=== PATIENT | male | born 1930 | race Caucasian/White ===

== ENCOUNTER 2017-07-10 10:02 | Emergency (ER) | payer MEDICARE ==
[~2017-07-10] VITALS: Ht 167.6 cm; Wt 81.9 kg
[2017-07-10] MEDS ORDERED: AMPICILLIN/SULBACTAM 3 GM in SODIUM CHLORIDE 0.9% 100 ML IVPB ONE (11:00)
[2017-07-10] MEDS ORDERED: SODIUM CHLORIDE FLUSH 10ML SYR IVF ONE (11:00)
[2017-07-10 11:32] LABS: BASOPHILS # (AUTO) 0.02 x10^3/uL (0-0.1); BASOPHILS % (AUTO) 0 % (0-1); EOSINOPHILS # (AUTO) 0.21 x10^3/uL (0-0.4); EOSINOPHILS % (AUTO) 4 % (1-7); LYMPHOCYTES # (AUTO) 0.88 x10^3/uL (1-3.4); LYMPHOCYTES % (AUTO) 14 % (22-44); MD NO; MEAN CORPUSCULAR HEMOGLOBIN 30.6 pg (27.5-34.5); MEAN CORPUSCULAR HGB CONC 33.9 g/dL (33.2-36.2); MEAN CORPUSCULAR VOLUME 90.3 fL (81-97); MEAN PLATELET VOLUME 8.1 fL (7.4-10.4); MONOCYTES # (AUTO) 0.59 x10^3/uL (0.2-0.8); MONOCYTES % (AUTO) 10 % (2-9); NEUTROPHILS # (AUTO) 4.42 x10^3/uL (1.8-6.8); NEUTROPHILS % (AUTO) 72 % (42-75); PLATELET COUNT 210 x10^3/uL (130-400); RED BLOOD COUNT 3.83 x10^6/uL (4.38-5.82)
[2017-07-10 11:38] LABS: ALBUMIN 3.3 g/dL (3.4-5.0); ANION GAP 9 mmol/L (5-15); CALCIUM 8.9 mg/dL (8.5-10.1); CHLORIDE 104 mmol/L (98-107); CREATININE 1.35 mg/dL (0.7-1.3)
[2017-07-10 13:19] VITALS: BP 147/68
== END 2017-07-10 14:35 | disposition home or self-care (01) ==
LOC: ED 12:28
DX: L03.211 Cellulitis of face (principal); E11.9 Type 2 diabetes mellitus without complications
CPT/HCPCS: 36415; 80048; 82040; 83605; 85025; 87040; 96365; 99284; J0295

== ENCOUNTER 2017-09-16 17:14 | Emergency (ER) | payer MEDICARE ==
[~2017-09-16] VITALS: Ht 167.6 cm; Wt 90.9 kg
[2017-09-16] MEDS ORDERED: LASIX PO (19:21)
[2017-09-16] MEDS ORDERED: LISINOPRIL PO (19:21)
[2017-09-16] MEDS ORDERED: METFORMIN PO (19:21)
[2017-09-16] MEDS ORDERED: LIPITOR PO (19:21)
[2017-09-16 21:10] VITALS: BP 118/60
== END 2017-09-16 21:15 | disposition home or self-care (01) ==
LOC: ED 19:50
DX: B85.0 Pediculosis due to Pediculus humanus capitis (principal); B85.1 Pediculosis due to Pediculus humanus corporis; E11.9 Type 2 diabetes mellitus without complications; I10 Essential (primary) hypertension; E78.00 Pure hypercholesterolemia, unspecified; Z85.828 Personal history of other malignant neoplasm of skin
CPT/HCPCS: 99283

== ENCOUNTER 2018-04-18 20:36 | Emergency (ER) | payer MEDICARE ==
[~2018-04-18] VITALS: Ht 167.6 cm; Wt 73.0 kg
[~2018-04-18 20:36] MED LIST: LASIX PO; LIPITOR PO; LISINOPRIL PO; METFORMIN PO
[2018-04-18 21:03] VITALS: BP 134/85
[2018-04-18] MEDS ORDERED: ACETAMINOPHEN 325 MG TABLET PO ONE (21:30)
[2018-04-18] MEDS ORDERED: ACETAMINOPHEN 325 MG TABLET ONE (21:45)
--- NOTE | 2018-04-18 21:52 | NUR ---
ATTEMPTED TO MEDICATE PT, PT ELOPED FROM [facility], COULD NOT FIND PT AT THIS TIME.
== END 2018-04-18 22:12 | disposition home or self-care (01) ==
LOC: ED 21:06
DX: H66.011 Acute suppurative otitis media with spontaneous rupture of ear drum, right ear (principal); I10 Essential (primary) hypertension
CPT/HCPCS: 99283

== ENCOUNTER 2018-04-20 11:17 | Inpatient (IN) | payer MEDICARE ==
[~2018-04-20] VITALS: Ht 165.1 cm; Wt 86.7 kg
--- NOTE | 2018-04-20 11:34 | NUR ---
ROSHAN ESPINOZA FROM [place] FOR RON BLOOD IN STOOL. PT AOX4, PALE, VSS ON RA. NAD. PT CLEANED AND TRANSFERRED TO [facility]. MEDICATIONS WITH PT, MED REC UPDATED. FAMILY NOTIFIED PER [facility] AND ARE ON THEIR WAY
[2018-04-20] MEDS ORDERED: SODIUM CHLORIDE 0.9% 1,000ML IVBOLUS ONE (12:30)
--- NOTE | 2018-04-20 12:30 | NUR ---
PT TO CT, FAMILY AT BEDSIDE. UPDATED ON POC AND NEED FOR TEST RESULTS FOR MD TO DETERMINE COURSE OF CARE. FAMILY STATES THEY DO NOT HAVE PHONE OR WAY TO CONTACT HOSPITAL AND WILL COME BACK LATER. MED REC UPDATED
[2018-04-20 12:47] LABS: BASOPHILS # (AUTO) 0.02 x10^3/uL (0-0.1); BASOPHILS % (AUTO) 0 % (0-1); EOSINOPHILS # (AUTO) 0.09 x10^3/uL (0-0.4); EOSINOPHILS % (AUTO) 2 % (1-7); LYMPHOCYTES # (AUTO) 0.79 x10^3/uL (1-3.4); LYMPHOCYTES % (AUTO) 14 % (22-44); MD NO; MEAN CORPUSCULAR HEMOGLOBIN 30.6 pg (27.5-34.5); MEAN CORPUSCULAR HGB CONC 34.3 g/dL (33.2-36.2); MEAN CORPUSCULAR VOLUME 89.2 fL (81-97); MEAN PLATELET VOLUME 8.2 fL (7.4-10.4); MONOCYTES # (AUTO) 0.37 x10^3/uL (0.2-0.8); MONOCYTES % (AUTO) 6 % (2-9); NEUTROPHILS # (AUTO) 4.57 x10^3/uL (1.8-6.8); NEUTROPHILS % (AUTO) 78 % (42-75); PLATELET COUNT 234 x10^3/uL (130-400); RED BLOOD COUNT 3.17 x10^6/uL (4.38-5.82); RED CELL DISTRIBUTION WIDTH 15.8 % (9.4-14.8)
[2018-04-20 13:00] LABS: ALBUMIN 2.1 g/dL (3.4-5.0); ANION GAP 6 mmol/L (5-15); CALCIUM 8.1 mg/dL (8.5-10.1); CHLORIDE 110 mmol/L (98-107)
[2018-04-20] MEDS ORDERED: FURO20TA3 PO (13:00)
[2018-04-20] MEDS ORDERED: SPIR25TA5 PO (13:00)
[2018-04-20] MEDS ORDERED: LISI-167 PO (13:00)
[2018-04-20] MEDS ORDERED: AMOX875T PO (13:00)
[2018-04-20] MEDS ORDERED: DORZ1DRO7 EACHEYE (13:00)
[2018-04-20] MEDS ORDERED: METF500T27 PO (13:00)
[2018-04-20] MEDS ORDERED: OMEP-110 PO (13:00)
[2018-04-20] MEDS ORDERED: ASPI-515 PO (13:00)
[2018-04-20] MEDS ORDERED: CARV12.52 PO (13:00)
[2018-04-20] MEDS ORDERED: DIGO125T PO (13:00)
[2018-04-20] MEDS ORDERED: LATA7.5D EACHEYE (13:00)
[2018-04-20 13:03] LABS: ALANINE AMINOTRANSFERASE 9 U/L (12-78); ALKALINE PHOSPHATASE 69 U/L (45-117); BILIRUBIN,TOTAL 0.7 mg/dL (0.2-1.0); CREATININE 2.09 mg/dL (0.7-1.3); TOTAL PROTEIN 6.7 g/dL (6.4-8.2)
[2018-04-20 13:05] LABS: INTERNATIONAL NORMALIZED RATIO 1.1 (0.93-1.1); PROTHROMBIN TIME 11.5 Seconds (9.6-11.5)
--- NOTE | 2018-04-20 13:40 | NUR ---
PT RESTING IN BED, ON MONITOR, VSS. CRITICAL DIG LEVEL 2.1, MD NOTIFIED
[2018-04-20] MEDS: SODIUM CHLORIDE 0.9% 1,000 ML IV SCH ×2 (14:15→20:39)
[2018-04-20] MEDS ORDERED: ONDANSETRON 2MG/ML, 2ML IVPush PRN (14:30)
[2018-04-20] MEDS ORDERED: LABETALOL 5MG/ML, 20ML IVPush PRN (14:30)
[2018-04-20] MEDS ORDERED: AMOXICILLIN/CLAV 875-125MG TABLET ONE (14:37)
[2018-04-20] MEDS: AMOXICILLIN/CLAV 875-125MG TABLET PO SCH (14:40)
--- NOTE | 2018-04-20 14:40 | NUR ---
PT RESTING IN RWARRIORMINE, ADMIT ORDERS RECIEVED. PT GIVEN ABX. AWAITING BED PLACEMENT
[2018-04-20 15:09] LABS: HEMOGLOBIN A1C 7.1 % (4.2-6.3)
--- NOTE | 2018-04-20 15:38 | NUR ---
PT SLEEPING IN RNEY ON MONITOR, VSS, NS@125 INFUSING, AWAITING MEDICAL BED ASSIGNMENT. CALL LIGHT WITHIN REACH. GI AND HOSPITALIST AT BEDSIDE
[2018-04-20] MEDS: INSULIN LISPRO 100 UNITS/ML, PEN SQ-INSULIN SCH ×2 (16:00→20:00)
--- NOTE | 2018-04-20 16:56 | NUR ---
REPORT CALLED TO MINDI MCGEE
[2018-04-20 17:42] VITALS: BP 150/72
[2018-04-20] MEDS ORDERED: GOLYTELY 4,000ML ORAL.SOL PO ONE (18:00)
[2018-04-20] MEDS: CARVEDILOL 12.5 MG TABLET PO SCH (20:33)
[2018-04-20] MEDS: PANTOPRAZOLE 40 MG IV IVPush SCH (20:34)
[2018-04-20 20:59] VITALS: BP 126/74
[2018-04-21 01:27] VITALS: BP 147/71
[2018-04-21] MEDS: AMOXICILLIN/CLAV 875-125MG TABLET PO SCH ×2 (02:36→16:07)
[2018-04-21] MEDS: SODIUM CHLORIDE 0.9% 1,000 ML IV SCH ×3 (04:29→21:07)
[2018-04-21 07:00] VITALS: BP 144/76
[2018-04-21] MEDS: INSULIN LISPRO 100 UNITS/ML, PEN SQ-INSULIN SCH ×4 (07:00→21:05)
[2018-04-21] MEDS: CARVEDILOL 12.5 MG TABLET PO SCH ×2 (08:16→21:06)
[2018-04-21] MEDS: DIGOXIN 0.125 MG TABLET PO SCH (08:16)
[2018-04-21] MEDS: PANTOPRAZOLE 40 MG IV IVPush SCH ×2 (08:16→21:06)
[2018-04-21] MEDS ORDERED: LISINOPRIL 10 MG TABLET PO SCH (09:00)
[2018-04-21 14:00] VITALS: BP 138/80
[2018-04-21] MEDS ORDERED: PROPOFOL 10 MG/ML, 50ML ONE (14:38)
[2018-04-21] MEDS ORDERED: PROPOFOL 10 MG/ML, 20ML ONE (14:38)
[2018-04-21 18:56] VITALS: BP 138/70
[2018-04-21] MEDS: ACETAMINOPHEN 325 MG TABLET PO PRN (21:50)
[2018-04-22 01:13] VITALS: BP 130/68
[2018-04-22] MEDS: AMOXICILLIN/CLAV 875-125MG TABLET PO SCH ×2 (04:25→16:47)
[2018-04-22] MEDS: SODIUM CHLORIDE 0.9% 1,000 ML IV SCH ×2 (04:26→21:18)
[2018-04-22 05:59] LABS: ALANINE AMINOTRANSFERASE 7 U/L (12-78); ANION GAP 9 mmol/L (5-15); CALCIUM 7.6 mg/dL (8.5-10.1); CHLORIDE 113 mmol/L (98-107)
[2018-04-22 06:01] LABS: ALKALINE PHOSPHATASE 59 U/L (45-117); BILIRUBIN,TOTAL 0.9 mg/dL (0.2-1.0); CREATININE 1.41 mg/dL (0.7-1.3); TOTAL PROTEIN 5.6 g/dL (6.4-8.2)
[2018-04-22 06:57] VITALS: BP 128/69
[2018-04-22] MEDS ORDERED: FENTANYL PF 100 MCG/2ML ONE ×2 (08:21)
[2018-04-22] MEDS ORDERED: MIDAZOLAM 1 MG/ML, 5ML ONE (08:21)
[2018-04-22] MEDS: INSULIN LISPRO 100 UNITS/ML, PEN SQ-INSULIN SCH ×4 (08:43→19:51)
[2018-04-22] MEDS ORDERED: [UNRECOGNIZED DRUG - OTHER] OP SCH (10:00)
[2018-04-22 10:05] LABS: BASOPHILS # (AUTO) 0.01 x10^3/uL (0-0.1); BASOPHILS % (AUTO) 0 % (0-1); EOSINOPHILS % (AUTO) 2 % (1-7); LYMPHOCYTES # (AUTO) 0.78 x10^3/uL (1-3.4); LYMPHOCYTES % (AUTO) 19 % (22-44); MD SCAN; MEAN CORPUSCULAR HEMOGLOBIN 29.7 pg (27.5-34.5); MEAN CORPUSCULAR HGB CONC 33.5 g/dL (33.2-36.2); MEAN CORPUSCULAR VOLUME 88.8 fL (81-97); MONOCYTES # (AUTO) 0.33 x10^3/uL (0.2-0.8); MONOCYTES % (AUTO) 8 % (2-9); NEUTROPHILS # (AUTO) 2.96 x10^3/uL (1.8-6.8); NEUTROPHILS % (AUTO) 71 % (42-75); PLATELET COUNT 206 x10^3/uL (130-400); RED BLOOD COUNT 2.37 x10^6/uL (4.38-5.82); RED CELL DISTRIBUTION WIDTH 15.6 % (9.4-14.8)
[2018-04-22] MEDS: CARVEDILOL 12.5 MG TABLET PO SCH ×2 (10:28→21:18)
[2018-04-22] MEDS: PANTOPRAZOLE 40 MG IV IVPush SCH ×2 (10:28→21:18)
[2018-04-22] MEDS ORDERED: PRED5DRO2 LEFTEYE (10:47)
[2018-04-22] MEDS: DIGOXIN 0.125 MG TABLET PO SCH (11:03)
[2018-04-22] MEDS: [UNRECOGNIZED DRUG - OTHER] OP SCH (11:03)
[2018-04-22 14:14] VITALS: BP 124/69
[2018-04-22] MEDS ORDERED: SODIUM CHLORIDE 0.9% 1,000 ML IV SCH (14:15)
[2018-04-22 19:23] VITALS: BP 144/68
[2018-04-22] MEDS ORDERED: LATANOPROST OPHTH 0.005%, 2.5ML OP SCH (21:00)
[2018-04-22] MEDS ORDERED: GUAIFENESIN/DM 200-20MG, 10ML UDC PO PRN (22:00)
[2018-04-22] MEDS: LATANOPROST OPHTH 0.005%, 2.5ML LEFTEYE SCH (22:05)
[2018-04-22] MEDS: ACETAMINOPHEN 325 MG TABLET PO PRN (22:05)
[2018-04-23 01:54] VITALS: BP 136/67
[2018-04-23] MEDS: AMOXICILLIN/CLAV 875-125MG TABLET PO SCH ×2 (05:04→16:42)
[2018-04-23] MEDS: SODIUM CHLORIDE 0.9% 1,000 ML IV SCH ×2 (05:04→14:57)
[2018-04-23 06:03] LABS: MEAN CORPUSCULAR HGB CONC 33.7 g/dL (33.2-36.2); MEAN CORPUSCULAR VOLUME 88.9 fL (81-97); MEAN PLATELET VOLUME 7.3 fL (7.4-10.4); PLATELET COUNT 206 x10^3/uL (130-400); RED BLOOD COUNT 2.46 x10^6/uL (4.38-5.82); RED CELL DISTRIBUTION WIDTH 15.4 % (9.4-14.8)
[2018-04-23 06:09] LABS: ALANINE AMINOTRANSFERASE 7 U/L (12-78); ALBUMIN 1.9 g/dL (3.4-5.0); ANION GAP 5 mmol/L (5-15); CALCIUM 7.6 mg/dL (8.5-10.1); CHLORIDE 115 mmol/L (98-107); CREATININE 1.43 mg/dL (0.7-1.3)
[2018-04-23 06:11] LABS: ALKALINE PHOSPHATASE 60 U/L (45-117); BILIRUBIN,TOTAL 0.4 mg/dL (0.2-1.0); TOTAL PROTEIN 5.7 g/dL (6.4-8.2)
[2018-04-23 06:16] LABS: BASOPHILS # (AUTO) 0.02 x10^3/uL (0-0.1); BASOPHILS % (AUTO) 0 % (0-1); EOSINOPHILS # (AUTO) 0.11 x10^3/uL (0-0.4); EOSINOPHILS % (AUTO) 2 % (1-7); LYMPHOCYTES # (AUTO) 0.68 x10^3/uL (1-3.4); LYMPHOCYTES % (AUTO) 14 % (22-44); MD SCAN; MONOCYTES # (AUTO) 0.29 x10^3/uL (0.2-0.8); MONOCYTES % (AUTO) 6 % (2-9); NEUTROPHILS # (AUTO) 3.97 x10^3/uL (1.8-6.8); NEUTROPHILS % (AUTO) 78 % (42-75)
[2018-04-23 08:01] VITALS: BP 129/69
[2018-04-23] MEDS: INSULIN LISPRO 100 UNITS/ML, PEN SQ-INSULIN SCH ×4 (08:07→21:00)
[2018-04-23] MEDS: PANTOPROZOLE 40MG TABLET PO SCH ×2 (08:08→21:15)
[2018-04-23] MEDS: DIGOXIN 0.125 MG TABLET PO SCH (08:08)
[2018-04-23] MEDS: CARVEDILOL 12.5 MG TABLET PO SCH ×2 (08:08→21:15)
[2018-04-23] MEDS: [UNRECOGNIZED DRUG - OTHER] OP SCH (08:09)
[2018-04-23] MEDS ORDERED: [UNRECOGNIZED DRUG - OTHER] OP SCH (09:00)
[2018-04-23] MEDS ORDERED: OMNIPAQUE 350 MG/ML, 100ML BOTTLE ONE (12:34)
[2018-04-23 12:42] VITALS: BP 133/72
[2018-04-23] MEDS: ACETAMINOPHEN 325 MG TABLET PO PRN (16:42)
[2018-04-23 18:53] VITALS: BP 120/67
[2018-04-23] MEDS: LATANOPROST OPHTH 0.005%, 2.5ML LEFTEYE SCH (21:14)
[2018-04-24] VITALS (9 sets, daily range): BP systolic 101–149; BP diastolic 52–77
[2018-04-24] MEDS: ACETAMINOPHEN 325 MG TABLET PO PRN ×2 (02:48→20:16)
[2018-04-24] MEDS: AMOXICILLIN/CLAV 875-125MG TABLET PO SCH ×2 (05:06→17:00)
[2018-04-24 05:21] LABS: MEAN CORPUSCULAR HEMOGLOBIN 30.3 pg (27.5-34.5); MEAN CORPUSCULAR HGB CONC 33.9 g/dL (33.2-36.2); MEAN CORPUSCULAR VOLUME 89.3 fL (81-97); MEAN PLATELET VOLUME 7.7 fL (7.4-10.4); PLATELET COUNT 192 x10^3/uL (130-400); RED BLOOD COUNT 2.34 x10^6/uL (4.38-5.82); RED CELL DISTRIBUTION WIDTH 15.4 % (9.4-14.8)
[2018-04-24 05:24] LABS: ALBUMIN 1.9 g/dL (3.4-5.0); CALCIUM 7.6 mg/dL (8.5-10.1); CHLORIDE 113 mmol/L (98-107)
[2018-04-24 05:29] LABS: ALANINE AMINOTRANSFERASE 9 U/L (12-78); ALKALINE PHOSPHATASE 68 U/L (45-117); ANION GAP 6 mmol/L (5-15); BILIRUBIN,TOTAL 1.8 mg/dL (0.2-1.0); CREATININE 1.36 mg/dL (0.7-1.3); TOTAL PROTEIN 5.6 g/dL (6.4-8.2)
[2018-04-24 06:23] LABS: BASOPHILS # (AUTO) 0.01 x10^3/uL (0-0.1); BASOPHILS % (AUTO) 0 % (0-1); EOSINOPHILS % (AUTO) 2 % (1-7); LYMPHOCYTES % (AUTO) 10 % (22-44); MD SCAN; MONOCYTES # (AUTO) 0.23 x10^3/uL (0.2-0.8); MONOCYTES % (AUTO) 4 % (2-9); NEUTROPHILS # (AUTO) 5.08 x10^3/uL (1.8-6.8); NEUTROPHILS % (AUTO) 84 % (42-75)
[2018-04-24] MEDS: INSULIN LISPRO 100 UNITS/ML, PEN SQ-INSULIN SCH ×4 (07:00→20:16)
[2018-04-24] MEDS: [UNRECOGNIZED DRUG - OTHER] OP SCH (09:25)
[2018-04-24] MEDS: DIGOXIN 0.125 MG TABLET PO SCH (09:25)
[2018-04-24] MEDS: CARVEDILOL 12.5 MG TABLET PO SCH ×2 (09:26→20:15)
[2018-04-24] MEDS: PANTOPROZOLE 40MG TABLET PO SCH ×2 (09:26→20:15)
[2018-04-24] MEDS: SODIUM CHLORIDE 0.9% 1,000 ML IV SCH (13:18)
[2018-04-24] MEDS: LATANOPROST OPHTH 0.005%, 2.5ML LEFTEYE SCH (20:15)
[2018-04-25 00:09] VITALS: BP 119/63
[2018-04-25] MEDS: AMOXICILLIN/CLAV 875-125MG TABLET PO SCH (05:41)
[2018-04-25] MEDS: INSULIN LISPRO 100 UNITS/ML, PEN SQ-INSULIN SCH ×2 (07:00→11:00)
[2018-04-25 07:52] VITALS: BP 122/68
[2018-04-25] MEDS: PANTOPROZOLE 40MG TABLET PO SCH (08:24)
[2018-04-25] MEDS: [UNRECOGNIZED DRUG - OTHER] OP SCH (08:25)
[2018-04-25] MEDS: DIGOXIN 0.125 MG TABLET PO SCH (08:25)
[2018-04-25] MEDS: CARVEDILOL 12.5 MG TABLET PO SCH (08:25)
[2018-04-25] MEDS: SODIUM CHLORIDE 0.9% 1,000 ML IV SCH (08:25)
[2018-04-25] MEDS: ACETAMINOPHEN 325 MG TABLET PO PRN (10:43)
[2018-04-25] MEDS ORDERED: SULFAMETH./TRIMETHOPRIM DS 800MG/160MG TABLET PO SCH (11:00)
[2018-04-25] MEDS ORDERED: INSU100I11 SQ-INSULIN ×2 (11:09)
[2018-04-25] MEDS ORDERED: SULF-169 PO (11:09)
[2018-04-25] MEDS ORDERED: PANT40TA5 PO (11:09)
[2018-04-25] MEDS ORDERED: GLIM1TAB2 PO (13:21)
== END 2018-04-25 14:29 | disposition home or self-care (01) | DRG 377 ==
LOC: ED 13:17 → EDIP 13:37 → 4EST 17:36
PROVIDERS: ADMIT Internal Medicine; ATTEND Internal Medicine
PROC: 0DBP8ZZ Excision of Rectum, Via Natural or Artificial Opening Endoscopic (ICD-10-PCS; 2018-04-21)
PROC: 0DB98ZX Excision of Duodenum, Via Natural or Artificial Opening Endoscopic, Diagnostic (ICD-10-PCS; 2018-04-22)
PROC: 0DB68ZX Excision of Stomach, Via Natural or Artificial Opening Endoscopic, Diagnostic (ICD-10-PCS; 2018-04-22)
PROC: 30233N1 Transfusion of Nonautologous Red Blood Cells into Peripheral Vein, Percutaneous Approach (ICD-10-PCS; principal; 2018-04-24)
DX: K29.91 Gastroduodenitis, unspecified, with bleeding (principal); E43 Unspecified severe protein-calorie malnutrition; N17.0 Acute kidney failure with tubular necrosis; J90 Pleural effusion, not elsewhere classified; D62 Acute posthemorrhagic anemia; E87.2 Acidosis; E11.22 Type 2 diabetes mellitus with diabetic chronic kidney disease; E11.65 Type 2 diabetes mellitus with hyperglycemia; E78.00 Pure hypercholesterolemia, unspecified; F10.21 Alcohol dependence, in remission; H40.9 Unspecified glaucoma; H66.90 Otitis media, unspecified, unspecified ear; I12.9 Hypertensive chronic kidney disease with stage 1 through stage 4 chronic kidney disease, or unspecified chronic kidney disease; B95.7 Other staphylococcus as the cause of diseases classified elsewhere; K29.61 Other gastritis with bleeding; I25.10 Atherosclerotic heart disease of native coronary artery without angina pectoris; I48.91 Unspecified atrial fibrillation; K44.9 Diaphragmatic hernia without obstruction or gangrene; K62.1 Rectal polyp; K64.8 Other hemorrhoids; N18.9 Chronic kidney disease, unspecified; K20.9 Esophagitis, unspecified; Z79.82 Long term (current) use of aspirin; Z85.828 Personal history of other malignant neoplasm of skin; Z68.31 Body mass index [BMI] 31.0-31.9, adult
CPT/HCPCS: 36415; 36430; 74176; 74177; 80053; 80162; 82728; 82962; 83036; 83540; 83550; 83690; 85014; 85018; 85025; 85610; 85730; 86677; 86850; 86900; 86923; 87070; 87077; 87186; 87205; 88305; 93005; 99152; 99153; G0378; J2250; J2704; J3010; Q9967; C9113; J1815; J7030; P9016

== ENCOUNTER 2019-01-17 17:29 | Inpatient (IN) | payer MEDICARE ==
[~2019-01-17] VITALS: Ht 167.6 cm; Wt 71.0 kg
[~2019-01-17 17:29] MED LIST changes: +AMOX875T PO; +ASPI-515 PO; +CARV12.52 PO; +DIGO125T PO; +DORZ1DRO7 EACHEYE; +FURO20TA3 PO; +GLIM1TAB3 PO; +INSU100I11 SQ-INSULIN; +LATA7.5D EACHEYE; +LISI-167 PO; +METF500T27 PO; +OMEP-110 PO; +PANT40TA5 PO; +PRED5DRO2 LEFTEYE; +SPIR25TA5 PO; +SULF-169 PO
--- NOTE | 2019-01-17 18:15 | NUR ---
THIS IS AN 88 YO MALE WHO PRESENTS TO THE ER C/O GENERAL MALAISE AND A COUGH X A FEW DAYS. PT FROM INTERMEDIATE. LICE NOTED BY RN. PT PUT IN ISOLATION. PT AFIB 120'S-150S' NOTED ON DRIVE WORKER BY RN. DISCUSSED WITH MARGARITO SAWYER AND WILL ATTMEPT IVF PRIOR TO MEDICATION. PT AO X 4, BUT POOR HISTORIA. SKIN SLIGHTLY PALE, WARM AND DRY. BUG BITES NOTED ACROSS TRUNK AND ARMS. PT ON CONT BP, CARDIAC AND O2 MONITORS. CALL LIGHT WITHIN REACH. WILL CONT TO MONITOR PT.
[2019-01-17] MEDS ORDERED: SODIUM CHLORIDE FLUSH 10ML SYR IVF ONE (18:30)
[2019-01-17] MEDS ORDERED: SODIUM CHLORIDE 0.9% 1,000ML IVBOLUS ONE ×2 (18:30→20:00)
[2019-01-17 18:44] LABS: MEAN CORPUSCULAR HEMOGLOBIN 30.6 pg (27.5-34.5); MEAN CORPUSCULAR HGB CONC 33.1 g/dL (33.2-36.2); MEAN CORPUSCULAR VOLUME 92.6 fL (81-97); MEAN PLATELET VOLUME 8.6 fL (7.4-10.4); PLATELET COUNT 122 x10^3/uL (130-400); RED BLOOD COUNT 3.32 x10^6/uL (4.38-5.82); RED CELL DISTRIBUTION WIDTH 16.5 % (9.4-14.8)
[2019-01-17 18:50] LABS: INTERNATIONAL NORMALIZED RATIO 1.08 (0.93-1.1); PROTHROMBIN TIME 11.3 Seconds (9.6-11.5)
[2019-01-17 18:51] LABS: ALANINE AMINOTRANSFERASE 21 U/L (12-78); ALBUMIN 2.4 g/dL (3.4-5.0); ANION GAP 8 mmol/L (5-15); CALCIUM 8.1 mg/dL (8.5-10.1); CHLORIDE 104 mmol/L (98-107); CREATININE 1.66 mg/dL (0.7-1.3)
[2019-01-17 18:56] LABS: ALKALINE PHOSPHATASE 41 U/L (45-117); BILIRUBIN,TOTAL 0.9 mg/dL (0.2-1.0); TOTAL PROTEIN 7.1 g/dL (6.4-8.2)
[2019-01-17 19:30] LABS: MD SCAN
[2019-01-17] MEDS ORDERED: CEFTRIAXONE PMX 1GM/50ML 50 ML IVPB ONE (19:30)
[2019-01-17] MEDS ORDERED: AZITHROMYCIN 500 MG in SODIUM CHLORIDE 0.9% 250 ML IVPB ONE (19:30)
[2019-01-17 19:32] LABS: BASOPHILS # (AUTO) 0.01 x10^3/uL (0-0.1); BASOPHILS % (AUTO) 0 % (0-1); EOSINOPHILS % (AUTO) 0 % (1-7); LYMPHOCYTES # (AUTO) 0.32 x10^3/uL (1-3.4); LYMPHOCYTES % (AUTO) 7 % (22-44); MONOCYTES # (AUTO) 0.07 x10^3/uL (0.2-0.8); MONOCYTES % (AUTO) 1 % (2-9); NEUTROPHILS # (AUTO) 4.51 x10^3/uL (1.8-6.8); NEUTROPHILS % (AUTO) 92 % (42-75)
[2019-01-17] MEDS ORDERED: CEFTRIAXONE PMX 1GM/50ML 50 ML ONE (19:40)
--- NOTE | 2019-01-17 19:48 | NUR ---
PT CURRENTLY RESTING ON [place]. NAD NOTED. SKIN SLIGHTLY PALE, WARM AND DRY. RESP EVEN AND UNLABORED. PT AWARE WE ARE WAITING FOR RECHECK BY MARGARITO. PT PROVIDED WITH WATER WITH OKAY BY MARGARITO SAWYER. PT ON CONT BP, CARDIAC AND O2 MONTIORS. HR DECREASED TO 110'S-120S AFIB ON CARDIA MONITOR. CALL LIGHT WITHIN REACH. WILL CONT OT MONITOR PT.
--- NOTE | 2019-01-17 21:15 | NUR ---
PT'S HEAD SHAVED AND PT SHOWERED IN [place] SHOWER. BELONGINGS DOUBLE BAGGED AND PT MOVED TO NEW ROOM. ADMITTING MD REYNA AT BEDSIDE FOR EVAL. REPORT TO EVERARDO GORDON WHO ASSUMED CARE OF PT.
--- NOTE | 2019-01-17 21:27 | NUR ---
REPORT FROM EVERARDO SCOTT. PT RESTING IN ROOM. AFIB 100S-110S, ALL OTHER VSS ON RA. NO NEEDS EXPRESSED. CALL LIGHT WITHIN REACH. AWAITING ROOM ASSIGNMENT.
[2019-01-17] MEDS ORDERED: hydrALAzine 20 MG/ML, 1ML IVPush PRN (21:30)
[2019-01-17] MEDS ORDERED: OXYcodone IR 5MG TABLET PO PRN (21:30)
[2019-01-17] MEDS: METOPROLOL TARTRATE 25 MG TABLET PO SCH (21:30)
[2019-01-17] MEDS ORDERED: DOCUSATE 100 MG CAPSULE PO PRN (21:30)
[2019-01-17] MEDS ORDERED: morphine SULFATE 10 MG/ML, 1ML IVPush PRN (21:30)
[2019-01-17] MEDS ORDERED: DIGOXIN 0.25 MG/ML, 2ML IVPush ONE (21:30)
[2019-01-17] MEDS ORDERED: POLYETHYLENE GLYCOL 17 GM PACKET PO PRN (21:30)
[2019-01-17] MEDS ORDERED: PROMETHAZINE 25 MG/ML, 1ML IM PRN (21:30)
[2019-01-17] MEDS ORDERED: ENOXAPARIN 30 MG/0.3 ML SQ SCH (21:30)
[2019-01-17] MEDS ORDERED: ONDANSETRON 2MG/ML, 2ML IVPush PRN (21:30)
[2019-01-17] MEDS ORDERED: CEFTRIAXONE PMX 1GM/50ML 50 ML IV ONE (21:30)
[2019-01-17] MEDS ORDERED: ACETAMINOPHEN 325 MG TABLET PO PRN (21:30)
[2019-01-17] MEDS ORDERED: BISACODYL 10 MG SUPP PR PRN (21:30)
[2019-01-17] MEDS ORDERED: ONDANSETRON ODT 4 MG PO PRN (21:30)
[2019-01-17 21:42] LABS: HEMOGLOBIN A1C 7.5 % (4.2-6.3)
[2019-01-17 21:44] LABS: FREE T4 (FREE THYROXINE) 0.93 ng/dL (0.76-1.46)
--- NOTE | 2019-01-17 22:04 | NUR ---
REPORT TO EVERARDO JUAN. PT READY FOR TRANSPORT.
[2019-01-17 22:27] VITALS: BP 107/68
--- NOTE | 2019-01-17 22:33 | NUR ---
TP NURSE: PT TRANSPORTED WITH TWO BELONGING BAGS TO FLOOR. PT WAS ADMITTED WITH LICE, AND PT BELONGING BAGS WERE PLACED INTO MULTIPLE BAGS TO PREVENT CONTAMINATION OF BUGS TO FLOOR.
[2019-01-17 22:50] VITALS: BP 110/64
[2019-01-17] MEDS: SODIUM CHLORIDE 0.9% 1,000 ML IV SCH (23:18)
[2019-01-18] LABS: TROPONIN I 0.083 ng/mL (0.000-0.045)
[2019-01-18 02:00] VITALS: BP_SYST 100; BP_SYST 102; BP_SYST 110; BP_DIAS 58; BP_DIAS 64; BP_DIAS 65
[2019-01-18 03:50] LABS: BASOPHILS % (AUTO) 0 % (0-1); EOSINOPHILS % (AUTO) 0 % (1-7); LYMPHOCYTES # (AUTO) 0.47 x10^3/uL (1-3.4); LYMPHOCYTES % (AUTO) 11 % (22-44); MD NO; MEAN CORPUSCULAR HGB CONC 33.2 g/dL (33.2-36.2); MEAN CORPUSCULAR VOLUME 93.3 fL (81-97); MEAN PLATELET VOLUME 8.5 fL (7.4-10.4); MONOCYTES # (AUTO) 0.13 x10^3/uL (0.2-0.8); MONOCYTES % (AUTO) 3 % (2-9); NEUTROPHILS # (AUTO) 3.61 x10^3/uL (1.8-6.8); NEUTROPHILS % (AUTO) 86 % (42-75); PLATELET COUNT 102 x10^3/uL (130-400); RED BLOOD COUNT 2.94 x10^6/uL (4.38-5.82); RED CELL DISTRIBUTION WIDTH 15.7 % (9.4-14.8)
[2019-01-18 04:03] LABS: ALANINE AMINOTRANSFERASE 20 U/L (12-78); ALBUMIN 1.9 g/dL (3.4-5.0); ANION GAP 9 mmol/L (5-15); CALCIUM 7.6 mg/dL (8.5-10.1); CHLORIDE 109 mmol/L (98-107); CREATININE 1.36 mg/dL (0.7-1.3); TROPONIN I 0.052 ng/mL (0.000-0.045)
[2019-01-18 04:05] LABS: ALKALINE PHOSPHATASE 37 U/L (45-117); BILIRUBIN,TOTAL 0.6 mg/dL (0.2-1.0); CHOL/HDL RATIO 4.9; CHOLESTEROL, TOTAL 68 mg/dL (140-239); HDL CHOL % 21 % (26-37); HDL CHOLESTEROL (DIRECT) 14 mg/dL (40-60); TOTAL PROTEIN 5.9 g/dL (6.4-8.2); TRIGLYCERIDES 109 mg/dL (50-200); VLDL CHOLESTEROL 22 mg/dL (0-25)
[2019-01-18 04:06] LABS: LDL CHOLESTEROL,CALCULATED 32 mg/dL (54-169); LDL/HDL RATIO 2.3 (0.5-3.0)
[2019-01-18] MEDS: ASPIRIN 325 MG TABLET EC PO SCH (06:09)
[2019-01-18] MEDS: METOPROLOL TARTRATE 25 MG TABLET PO SCH ×2 (06:09→18:34)
[2019-01-18] MEDS: INSULIN LISPRO 100 UNITS/ML, PEN SQ-INSULIN SCH ×4 (07:00→21:00)
[2019-01-18 07:49] VITALS: BP 105/60
[2019-01-18] MEDS: DOXYCYCLINE 100MG TABLET PO SCH ×2 (08:00→21:04)
[2019-01-18] MEDS: DIGOXIN 0.125 MG TABLET PO SCH (08:00)
[2019-01-18 14:15] VITALS: BP 115/67
[2019-01-18] MEDS: GUAIFENESIN 200 MG TABLET PO SCH ×2 (16:50→21:04)
[2019-01-18] MEDS: SODIUM CHLORIDE 0.9% 1,000 ML IV SCH (16:51)
[2019-01-18 17:40] LABS: RAPID INFLUENZA B Negative (Negative)
[2019-01-18 17:42] LABS: RAPID INFLUENZA A POSITIVE (Negative)
[2019-01-18] MEDS: CEFTRIAXONE PMX 2GM/50ML 50 ML IV SCH (17:44)
[2019-01-18 19:02] LABS: MICROSCOPIC INDICATED
[2019-01-18 19:08] LABS: CULTURE INDICATED? NO
[2019-01-18 20:03] VITALS: BP 108/70
[2019-01-18] MEDS: OSELTAMIVIR 75 MG CAPSULE PO SCH (21:04)
[2019-01-19] MEDS: ENOXAPARIN 40 MG/0.4 ML SQ SCH (00:34)
[2019-01-19 02:12] VITALS: BP 112/68
[2019-01-19 04:47] LABS: BASOPHILS # (AUTO) 0.01 x10^3/uL (0-0.1); BASOPHILS % (AUTO) 0 % (0-1); EOSINOPHILS % (AUTO) 0 % (1-7); LYMPHOCYTES # (AUTO) 0.43 x10^3/uL (1-3.4); LYMPHOCYTES % (AUTO) 10 % (22-44); MD NO; MEAN CORPUSCULAR HGB CONC 32.4 g/dL (33.2-36.2); MEAN CORPUSCULAR VOLUME 92.4 fL (81-97); MEAN PLATELET VOLUME 8.3 fL (7.4-10.4); MONOCYTES # (AUTO) 0.18 x10^3/uL (0.2-0.8); MONOCYTES % (AUTO) 4 % (2-9); NEUTROPHILS # (AUTO) 3.58 x10^3/uL (1.8-6.8); NEUTROPHILS % (AUTO) 85 % (42-75); PLATELET COUNT 102 x10^3/uL (130-400); RED BLOOD COUNT 3.21 x10^6/uL (4.38-5.82); RED CELL DISTRIBUTION WIDTH 15.9 % (9.4-14.8)
[2019-01-19 05:01] LABS: ALANINE AMINOTRANSFERASE 23 U/L (12-78); ALBUMIN 1.7 g/dL (3.4-5.0); ANION GAP 6 mmol/L (5-15); CALCIUM 7.8 mg/dL (8.5-10.1); CHLORIDE 109 mmol/L (98-107); CREATININE 1.24 mg/dL (0.7-1.3)
[2019-01-19 05:03] LABS: ALKALINE PHOSPHATASE 44 U/L (45-117); BILIRUBIN,TOTAL 0.6 mg/dL (0.2-1.0); TOTAL PROTEIN 5.9 g/dL (6.4-8.2)
[2019-01-19] MEDS: GUAIFENESIN 200 MG TABLET PO SCH ×4 (06:09→21:52)
[2019-01-19] MEDS: METOPROLOL TARTRATE 25 MG TABLET PO SCH ×2 (06:09→18:16)
[2019-01-19] MEDS: ASPIRIN 325 MG TABLET EC PO SCH (06:09)
[2019-01-19] MEDS: INSULIN LISPRO 100 UNITS/ML, PEN SQ-INSULIN SCH ×4 (07:00→21:00)
[2019-01-19 08:16] VITALS: BP 133/78
[2019-01-19] MEDS: DOXYCYCLINE 100MG TABLET PO SCH ×2 (10:06→21:52)
[2019-01-19] MEDS: DIGOXIN 0.125 MG TABLET PO SCH (10:06)
[2019-01-19] MEDS: OSELTAMIVIR 75 MG CAPSULE PO SCH ×2 (10:06→21:52)
[2019-01-19 13:55] VITALS: BP 139/81
[2019-01-19 18:15] VITALS: BP 133/78
[2019-01-19] MEDS: CEFTRIAXONE PMX 2GM/50ML 50 ML IV SCH (18:16)
[2019-01-19 19:02] VITALS: BP 144/72
[2019-01-20] MEDS: ENOXAPARIN 40 MG/0.4 ML SQ SCH ×2 (00:10→22:49)
[2019-01-20 00:24] VITALS: BP 134/66
[2019-01-20 05:21] LABS: MEAN CORPUSCULAR HEMOGLOBIN 30.6 pg (27.5-34.5); MEAN CORPUSCULAR HGB CONC 33.1 g/dL (33.2-36.2); MEAN CORPUSCULAR VOLUME 92.5 fL (81-97); MEAN PLATELET VOLUME 8.6 fL (7.4-10.4); PLATELET COUNT 109 x10^3/uL (130-400); RED CELL DISTRIBUTION WIDTH 15.7 % (9.4-14.8)
[2019-01-20 05:26] LABS: ALANINE AMINOTRANSFERASE 50 U/L (12-78); ALBUMIN 1.7 g/dL (3.4-5.0); ANION GAP 8 mmol/L (5-15); CALCIUM 7.9 mg/dL (8.5-10.1); CHLORIDE 109 mmol/L (98-107); CREATININE 1.14 mg/dL (0.7-1.3)
[2019-01-20 05:28] LABS: ALKALINE PHOSPHATASE 98 U/L (45-117); BILIRUBIN,TOTAL 0.5 mg/dL (0.2-1.0); TOTAL PROTEIN 5.9 g/dL (6.4-8.2)
[2019-01-20] MEDS: GUAIFENESIN 200 MG TABLET PO SCH ×4 (05:41→21:09)
[2019-01-20] MEDS: ASPIRIN 325 MG TABLET EC PO SCH (05:41)
[2019-01-20] MEDS: METOPROLOL TARTRATE 25 MG TABLET PO SCH ×2 (05:42→17:28)
[2019-01-20 06:03] LABS: BASOPHILS # (AUTO) 0.01 x10^3/uL (0-0.1); BASOPHILS % (AUTO) 0 % (0-1); EOSINOPHILS % (AUTO) 0 % (1-7); LYMPHOCYTES # (AUTO) 0.49 x10^3/uL (1-3.4); LYMPHOCYTES % (AUTO) 18 % (22-44); MD SCAN; MONOCYTES # (AUTO) 0.21 x10^3/uL (0.2-0.8); MONOCYTES % (AUTO) 8 % (2-9); NEUTROPHILS # (AUTO) 1.95 x10^3/uL (1.8-6.8); NEUTROPHILS % (AUTO) 73 % (42-75)
[2019-01-20 08:18] VITALS: BP 151/69
[2019-01-20] MEDS: DOXYCYCLINE 100MG TABLET PO SCH ×2 (08:53→21:09)
[2019-01-20] MEDS: DIGOXIN 0.125 MG TABLET PO SCH (08:53)
[2019-01-20] MEDS: INSULIN LISPRO 100 UNITS/ML, PEN SQ-INSULIN SCH ×4 (08:53→22:46)
[2019-01-20] MEDS: OSELTAMIVIR 75 MG CAPSULE PO SCH ×2 (08:54→21:09)
[2019-01-20 12:56] VITALS: BP 150/70
[2019-01-20] MEDS: AMOXICILLIN 500 MG CAPSULE PO SCH ×2 (17:28→21:09)
[2019-01-20 19:10] VITALS: BP 137/72
[2019-01-21 01:38] VITALS: BP 144/91
[2019-01-21] MEDS: GUAIFENESIN 200 MG TABLET PO SCH ×4 (06:25→20:27)
[2019-01-21] MEDS: METOPROLOL TARTRATE 25 MG TABLET PO SCH ×2 (06:26→18:21)
[2019-01-21] MEDS: ASPIRIN 325 MG TABLET EC PO SCH (06:26)
[2019-01-21] MEDS: INSULIN LISPRO 100 UNITS/ML, PEN SQ-INSULIN SCH ×4 (07:00→20:30)
[2019-01-21 08:00] VITALS: BP 152/76
[2019-01-21] MEDS: OSELTAMIVIR 75 MG CAPSULE PO SCH ×2 (08:23→20:27)
[2019-01-21] MEDS: DIGOXIN 0.125 MG TABLET PO SCH (08:23)
[2019-01-21] MEDS: LISINOPRIL 20 MG TABLET PO SCH (08:24)
[2019-01-21] MEDS: SPIRONOLACTONE 25 MG TABLET PO SCH (08:24)
[2019-01-21] MEDS: AMOXICILLIN 500 MG CAPSULE PO SCH ×3 (08:24→20:27)
[2019-01-21] MEDS: DOXYCYCLINE 100MG TABLET PO SCH ×2 (08:24→20:27)
[2019-01-21 08:34] VITALS: BP 165/90
[2019-01-21] MEDS ORDERED: LISINOPRIL 10 MG TABLET PO SCH (09:00)
[2019-01-21 09:23] LABS: BASOPHILS # (AUTO) 0.01 x10^3/uL (0-0.1); BASOPHILS % (AUTO) 1 % (0-1); EOSINOPHILS # (AUTO) 0.01 x10^3/uL (0-0.4); EOSINOPHILS % (AUTO) 0 % (1-7); LYMPHOCYTES # (AUTO) 0.68 x10^3/uL (1-3.4); LYMPHOCYTES % (AUTO) 23 % (22-44); MD NO; MEAN CORPUSCULAR HEMOGLOBIN 30.2 pg (27.5-34.5); MEAN CORPUSCULAR VOLUME 91.5 fL (81-97); MEAN PLATELET VOLUME 7.9 fL (7.4-10.4); MONOCYTES # (AUTO) 0.21 x10^3/uL (0.2-0.8); MONOCYTES % (AUTO) 7 % (2-9); NEUTROPHILS # (AUTO) 2.05 x10^3/uL (1.8-6.8); NEUTROPHILS % (AUTO) 69 % (42-75); PLATELET COUNT 142 x10^3/uL (130-400); RED BLOOD COUNT 3.45 x10^6/uL (4.38-5.82); RED CELL DISTRIBUTION WIDTH 16.5 % (9.4-14.8)
[2019-01-21 09:28] LABS: ANION GAP 8 mmol/L (5-15); CALCIUM 8.5 mg/dL (8.5-10.1); CHLORIDE 107 mmol/L (98-107)
[2019-01-21 13:15] VITALS: BP 137/70
[2019-01-21 18:53] VITALS: BP 150/74
[2019-01-21] MEDS: ENOXAPARIN 40 MG/0.4 ML SQ SCH (22:58)
[2019-01-22 01:28] VITALS: BP 140/70
[2019-01-22] MEDS: METOPROLOL TARTRATE 25 MG TABLET PO SCH ×2 (05:54→17:21)
[2019-01-22] MEDS: ASPIRIN 325 MG TABLET EC PO SCH (05:54)
[2019-01-22] MEDS: GUAIFENESIN 200 MG TABLET PO SCH ×4 (05:54→21:37)
[2019-01-22 05:57] LABS: BASOPHILS # (AUTO) 0.01 x10^3/uL (0-0.1); BASOPHILS % (AUTO) 0 % (0-1); EOSINOPHILS # (AUTO) 0.03 x10^3/uL (0-0.4); EOSINOPHILS % (AUTO) 1 % (1-7); LYMPHOCYTES # (AUTO) 0.59 x10^3/uL (1-3.4); LYMPHOCYTES % (AUTO) 18 % (22-44); MD NO; MEAN CORPUSCULAR HEMOGLOBIN 30.3 pg (27.5-34.5); MEAN CORPUSCULAR HGB CONC 33.1 g/dL (33.2-36.2); MEAN CORPUSCULAR VOLUME 91.7 fL (81-97); MEAN PLATELET VOLUME 7.9 fL (7.4-10.4); MONOCYTES # (AUTO) 0.27 x10^3/uL (0.2-0.8); MONOCYTES % (AUTO) 9 % (2-9); NEUTROPHILS # (AUTO) 2.28 x10^3/uL (1.8-6.8); NEUTROPHILS % (AUTO) 72 % (42-75); PLATELET COUNT 174 x10^3/uL (130-400); RED BLOOD COUNT 3.09 x10^6/uL (4.38-5.82); RED CELL DISTRIBUTION WIDTH 16.1 % (9.4-14.8)
[2019-01-22 06:09] LABS: CALCIUM 8.5 mg/dL (8.5-10.1); CHLORIDE 106 mmol/L (98-107)
[2019-01-22 06:13] LABS: ANION GAP 8 mmol/L (5-15); CREATININE 0.92 mg/dL (0.7-1.3)
[2019-01-22] MEDS: LISINOPRIL 20 MG TABLET PO SCH (08:23)
[2019-01-22] MEDS: AMOXICILLIN 500 MG CAPSULE PO SCH ×3 (08:23→21:37)
[2019-01-22] MEDS: DIGOXIN 0.125 MG TABLET PO SCH (08:23)
[2019-01-22] MEDS: OSELTAMIVIR 75 MG CAPSULE PO SCH ×2 (08:23→21:37)
[2019-01-22] MEDS: SPIRONOLACTONE 25 MG TABLET PO SCH (08:23)
[2019-01-22] MEDS: DOXYCYCLINE 100MG TABLET PO SCH ×2 (08:26→21:37)
[2019-01-22] MEDS: INSULIN LISPRO 100 UNITS/ML, PEN SQ-INSULIN SCH ×4 (08:27→21:42)
[2019-01-22 09:41] VITALS: BP 147/71
[2019-01-22] MEDS ORDERED: METO25TA35 PO (10:50)
[2019-01-22] MEDS ORDERED: DOXY100T PO (10:50)
[2019-01-22] MEDS ORDERED: LISI-170 PO (10:50)
[2019-01-22] MEDS ORDERED: AMOX1TAB64 PO (10:50)
[2019-01-22] MEDS ORDERED: ASPI-650 PO (10:50)
[2019-01-22] MEDS ORDERED: OSEL75CA14 PO ×3 (10:50→11:06)
[2019-01-22] MEDS ORDERED: GUAI200T37 PO (10:50)
[2019-01-22 15:59] VITALS: BP 135/67
[2019-01-22 19:41] VITALS: BP 146/69
[2019-01-22] MEDS: ENOXAPARIN 40 MG/0.4 ML SQ SCH (23:25)
[2019-01-23 00:27] LABS: OCCULT BLOOD NEGATIVE (NEGATIVE)
[2019-01-23 01:34] VITALS: BP 150/69
[2019-01-23] MEDS: GUAIFENESIN 200 MG TABLET PO SCH ×4 (06:10→22:48)
[2019-01-23] MEDS: ASPIRIN 325 MG TABLET EC PO SCH (06:10)
[2019-01-23] MEDS: METOPROLOL TARTRATE 25 MG TABLET PO SCH ×2 (06:11→18:13)
[2019-01-23 07:05] VITALS: BP 118/64
[2019-01-23] MEDS: INSULIN LISPRO 100 UNITS/ML, PEN SQ-INSULIN SCH ×4 (08:27→22:34)
[2019-01-23] MEDS: DIGOXIN 0.125 MG TABLET PO SCH (08:29)
[2019-01-23] MEDS: SPIRONOLACTONE 25 MG TABLET PO SCH (08:29)
[2019-01-23] MEDS: LISINOPRIL 20 MG TABLET PO SCH (08:30)
[2019-01-23] MEDS: DOXYCYCLINE 100MG TABLET PO SCH ×2 (08:30→22:48)
[2019-01-23] MEDS: AMOXICILLIN 500 MG CAPSULE PO SCH ×3 (08:30→22:48)
[2019-01-23] MEDS: OSELTAMIVIR 75 MG CAPSULE PO SCH (08:30)
[2019-01-23 12:20] VITALS: BP 146/71
[2019-01-23 18:16] VITALS: BP 145/63
[2019-01-24] MEDS: ENOXAPARIN 40 MG/0.4 ML SQ SCH (00:06)
[2019-01-24] MEDS: METOPROLOL TARTRATE 25 MG TABLET PO SCH (05:17)
[2019-01-24] MEDS: GUAIFENESIN 200 MG TABLET PO SCH ×2 (05:17→12:00)
[2019-01-24] MEDS: ASPIRIN 325 MG TABLET EC PO SCH (05:18)
[2019-01-24 07:39] VITALS: BP 115/52
[2019-01-24] MEDS ORDERED: AMOXICILLIN 250 MG CAPSULE ONE (08:17)
[2019-01-24] MEDS: SPIRONOLACTONE 25 MG TABLET PO SCH (08:20)
[2019-01-24] MEDS: DIGOXIN 0.125 MG TABLET PO SCH (08:21)
[2019-01-24] MEDS: DOXYCYCLINE 100MG TABLET PO SCH (08:21)
[2019-01-24] MEDS: LISINOPRIL 20 MG TABLET PO SCH (08:21)
[2019-01-24] MEDS: INSULIN LISPRO 100 UNITS/ML, PEN SQ-INSULIN SCH ×2 (08:22→11:55)
[2019-01-24] MEDS: AMOXICILLIN 500 MG CAPSULE PO SCH (08:22)
[2019-01-24 12:00] VITALS: BP 130/58
== END 2019-01-24 14:21 | DRG 193 ==
LOC: ED 17:41 → EDIP 21:08 → 5SO 22:23 → 4NW 01-24 00:24
PROVIDERS: ADMIT Internal Medicine; ATTEND Internal Medicine
DX: J10.01 Influenza due to other identified influenza virus with the same other identified influenza virus pneumonia (principal); E43 Unspecified severe protein-calorie malnutrition; N17.0 Acute kidney failure with tubular necrosis; I21.4 Non-ST elevation (NSTEMI) myocardial infarction; D68.69 Other thrombophilia; I48.20 Chronic atrial fibrillation, unspecified; D61.818 Other pancytopenia; J13 Pneumonia due to Streptococcus pneumoniae; J10.08 Influenza due to other identified influenza virus with other specified pneumonia; E11.9 Type 2 diabetes mellitus without complications; E78.00 Pure hypercholesterolemia, unspecified; I10 Essential (primary) hypertension; Z59.0 Homelessness; Z85.828 Personal history of other malignant neoplasm of skin; Z91.14 Patient's other noncompliance with medication regimen
CPT/HCPCS: 36415; 71045; 80048; 80053; 80061; 81001; 82272; 82962; 83036; 83605; 83735; 84145; 84439; 84443; 84484; 85025; 85610; 85730; 87040; 87070; 87147; 87205; 87400; 93005; 93306; 96365; 99285; G0378; J0456; J0696; J1650; J1160; J1815; J7030; J7050